=== PATIENT | female | born 1970 | race Caucasian/White ===

== ENCOUNTER → 2021-05-12 11:23 | Outpatient (BNVA) | payer OTHER, SELFPAY | PROVIDERS: Family Provider Otolaryngology; PCP Otolaryngology; Visit Provider Emergency Medicine | DX: J06.9 Acute upper respiratory infection, unspecified (principal); J02.8 Acute pharyngitis due to other specified organisms; B97.89 Other viral agents as the cause of diseases classified elsewhere; B37.81 Candidal esophagitis; B37.0 Candidal stomatitis; J40 Bronchitis, not specified as acute or chronic | CPT/HCPCS: 87071; 87880 ==

== ENCOUNTER → 2022-08-20 16:12 | Outpatient (BNVA) | payer OTHER, SELFPAY | PROVIDERS: Family Provider Otolaryngology; PCP Otolaryngology; Visit Provider Emergency Medicine | DX: R68.89 Other general symptoms and signs (principal); J10.1 Influenza due to other identified influenza virus with other respiratory manifestations | CPT/HCPCS: 87400 ==

== ENCOUNTER → 2024-04-26 17:50 | Outpatient (BNVA) | payer OTHER, SELFPAY | PROVIDERS: Family Provider Otolaryngology; PCP Nurse Practitioner Family; Visit Provider Nurse Practitioner | DX: R10.9 Unspecified abdominal pain (principal) | CPT/HCPCS: 81000 ==

== ENCOUNTER → 2024-05-02 17:24 | Outpatient (BNVA) | payer OTHER, SELFPAY | PROVIDERS: Family Provider Otolaryngology; PCP Nurse Practitioner Family; Visit Provider Nurse Practitioner | DX: N39.0 Urinary tract infection, site not specified (principal) | CPT/HCPCS: 81000; 87086 ==